=== PATIENT | female | born 1965 | race Caucasian/White ===

== ENCOUNTER → 2021-10-14 13:24 | Outpatient (CLI) | payer BC, SELFPAY ==
--- NOTE | 2021-10-14 13:45 | RAD_ITS ---
STUDY: X-RAY - LUMBAR SPINE REASON FOR EXAM: Female, 56 years old. BACK PAIN TECHNIQUE: 2 view(s) of the lumbar spine were obtained. COMPARISON: None FINDINGS: Normal lumbar lordosis. There is no substantial scoliosis. There is a normal alignment of the vertebrae. There is multilevel endplate spondylosis of the lumbar vertebrae. There is multi-level degenerative disc disease with multi-level disc space narrowing. Posterior fusion hardware noted from the level of L3-S2. No evidence of hardware failure or loosening. Anterolisthesis of L5 on S1, grade 1 The soft tissue structures are unremarkable. RAD/Lumbar Spine 2 or 3 Views IMPRESSION: Degenerative changes of the spine, as detailed above. Postsurgical changes of the lumbar spine Electronically Signed: Rayray Prater DO at 4:29 EST Tel , Service support ,
== END ==
PROVIDERS: Referring Provider Anesthesiology Pain Medicine; Visit Provider Anesthesiology Pain Medicine
DX: M47.816 Spondylosis without myelopathy or radiculopathy, lumbar region (principal); M96.1 Postlaminectomy syndrome, not elsewhere classified; M51.37 Other intervertebral disc degeneration, lumbosacral region; M51.36 Other intervertebral disc degeneration, lumbar region; M47.896 Other spondylosis, lumbar region
CPT/HCPCS: 72100

== ENCOUNTER 2022-07-17 08:03 | Emergency (ER) | payer BC, SELFPAY ==
[2022-07-17 08:04] VITALS: BP 132/95; PULSE 106; RESP 22; TEMP 36.8; O2SAT 91; BMI 23.3
--- NOTE | 2022-07-17 08:18 | RAD_ITS ---
STUDY: X-RAY - LUMBAR SPINE REASON FOR EXAM: Female, 56 years old. pain, history of lumbar surgery TECHNIQUE: 2 view(s) of the lumbar spine were obtained. COMPARISON: X-ray the lumbar spine dated October 14, 2021 FINDINGS: Bilateral pedicle screws and fusion rods and interbody grafts are present at L3-S1 with terminal screws through the S2 and bilateral SI joint regions. Mild extra scoliosis is present. The lumbar lordosis is slightly exaggerated. There is no change in spinal alignment. A small break in the left spinal anju at L5-S1 is seen on the lateral view only. No visualized acute fracture or compression deformity of the lumbar spine. There are chronic appearing compression deformities of the T8, T9, and T10 vertebral bodies. Anterolisthesis of L5 on S1 of 1.18 cm, suggesting underlying pars defects. The soft tissue structures are unremarkable. RAD/Lumbar Spine 2 or 3 Views IMPRESSION: No visualized acute process or significant interval change Electronically Signed: Arnoldo Araujo MD at 8:59 EDT ,
[2022-07-17] MEDS: morphine 10 MG/ML Syringe 4 MG SC (08:27)
--- NOTE | 2022-07-17 09:07 | EDS_ITS ---
HPI History of Present Illness Chief Complaint: Back Onset/Context/Timing Onset: Month(s) Location: Low back Maximum Severity: Severe Worsened by: Movement and use Associated Symptoms Associated Symptoms: None Narrative Narrative: Patient has a history of low back pain for months. She has a history of a lumbar cage that was placed 2 years ago at an outside facility. She has been moving a lot because of her 's work and does not have local physician or pain management. She is out of her pain pills and gabapentin. She denies any new injuries or symptoms. Prior similar symptoms: Yes Recent Illness/Hospitalization: No [facility] Medical History Depression Home Medications cyclobenzaprine 10 mg tablet 10 mg PO TID PRN Muscle Spasm #20 TABLETS 07/17/22 [Rx Last Taken Unknown] duloxetine 60 mg capsule,delayed release (Cymbalta) 60 mg PO DAILY 07/17/22 [History Last Taken Unknown] gabapentin 600 mg tablet 1,200 mg PO TID 07/17/22 [History Last Taken Unknown] naproxen 500 mg tablet 500 mg PO BID PRN #20 tabs 07/17/22 [Rx Last Taken Unknown] Allergy/AdvReac Type Severity Reaction Status Date / Time solifenacin [From Vesicare] Allergy Other Verified 07/17/22 08:04 Surgical History (Updated 07/17/22 @ 08:16 by Sabra Herman) History of appendectomy History of back surgery Social History Smoking Status: Current every day smoker tobacco type: cigarettes ROS ROS ED Constitutional Constitutional ED: Denies chills Eyes Eyes: Denies blurry vision ENT ENT ED: Denies ear pain Cardiovascular Cardiovascular: Denies chest pain Respiratory/Chest Respiratory/Chest: Denies cough Gastrointestinal Gastrointestinal: Denies abdominal pain, constipation, diarrhea, melena, nausea or vomiting Genitourinary Genitourinary ED: Denies dysuria Musculoskeletal Musculoskeletal: Reports back pain; Denies arthralgias Integumentary Denies abscess Neurologic Neurologic: Denies headache(s), paresthesias, weakness or other Psychiatric Psychiatric: Denies anxiety Endocrine Endocrinology: Denies cold intolerance Hematologic/Lymphatic Hematologic/Lymphatic: Denies easy bruising Allergic/Immunologic Allergic/Immunologic ED: Denies mouth swelling EXAM Physical Exam Const Vital Signs: 07/17/22 08:04 Temperature 98.2 F Temperature Source Temporal Pulse Rate 106 H Respiratory Rate 22 H Blood Pressure 132/95 H Blood Pressure Mean 107 Pulse Ox 91 Oxygen Delivery Method Room Air Positive well nourished and well developed General Appearance ED: well developed HEENT Reports moist mucous membranes Eyes PERRL and EOMs intact bilaterally Resp normal respiratory effort Cardio regular rate GI normal to inspection, nondistended, normoactive bowel sounds, non-tender and non-distended Back/Spine no CVA tenderness Back/Spine Narrative: Lumbar midline incision, well-healed and appears otherwise normal. Diffuse tenderness to the lumbar spine. Extremity normal to inspection General Extremety ED: Negative for edema or tenderness General Extremity: Negative for edema Neuro oriented x3, CN's II-XII intact bilaterally and no sensory deficits noted Sensorium / Orientation: alert Motor Exam: strength 5/5 throughout Psych mental status grossly normal Skin no rashes or lesions noted MDM MDM MDM Narrative Medical decision making narrative: Patient has no fevers, abnormal neurologic symptoms, trauma, cancer history, blood thinner use, or other red flag features. I did check x-rays. These were reviewed by the radiologist and myself showed no acute abnormalities. Patient was treated with pain medicine and will receive prescription for muscle relaxers and anti-inflammatories. She was referred to pain management for follow-up. Impression #1 acute on chronic lumbar pain Radiography Diagnostic Testing: Clinical Impression(s) from Imaging Studies Lumbar Spine X-Ray 07/17/22 08:18 IMPRESSION: No visualized acute process or significant interval change Electronically Signed: Arnoldo Araujo MD at 8:59 EDT Reading Location ID and State: [address] [place] [address] , Service support , Discharge Plan Triage Chief Complaint: Back ED Provider: Sanjeev Howard Dx/Rx/DC Orders Instructions: ED Back Pain (Acute or Chronic) Prescriptions: New cyclobenzaprine 10 mg tablet 10 mg PO TID PRN (Reason: Muscle Spasm) Qty: 20 0RF naproxen 500 mg tablet 500 mg PO BID PRN Qty: 20 0RF No Action gabapentin 600 mg tablet 1,200 mg PO TID Label Comments: TAKE 2 TABLETS BY MOUTH THREE TIMES DAILY duloxetine [Cymbalta] 60 mg Capsule,Delayed Release(Dr/Ec) 60 mg PO DAILY Primary Care Provider: Care Physician,No Primary Referrals: Wilman Green MD [Med Staff - Active Staff] - Disposition Disposition: Home, Self Care
== END 2022-07-17 09:12 | disposition home or self-care (01) ==
PROVIDERS: Emergency Provider Emergency Medicine; Visit Provider Emergency Medicine
DX: M54.50 Low back pain, unspecified (principal); G89.29 Other chronic pain; F17.210 Nicotine dependence, cigarettes, uncomplicated; F32.9 Major depressive disorder, single episode, unspecified; Z79.899 Other long term (current) drug therapy
CPT/HCPCS: 72100; 99282

== ENCOUNTER → 2022-08-23 | Outpatient (CLI) | payer BC, SELFPAY ==
--- NOTE | 2022-08-23 16:04 | MRI_ITS ---
STUDY: MRI LUMBAR SPINE WITH AND WITHOUT CONTRAST REASON FOR EXAM: Female, 57 years old. LOW BACK PAIN, hx prior surgery 12/14/20 TECHNIQUE: Standardized fat and water weighted pulse sequences were obtained in the sagittal and axial planes. IV 13ml Clariscan was administered for the contrast portion of the examination. COMPARISON: None FINDINGS: Bilateral metal artifact L4-S1 consistent with bilateral pedicle screw fusion. Grade 2 spondylolisthesis L5 on S1. T12-L1: Mild disc desiccation. Normal lumbar lordosis. There is no substantial scoliosis. Normal conus medullaris that terminates at the L1-2: Mild disc desiccation and disc bulging. L2-3: Mild disc desiccation and disc bulging, mild bilateral facet arthropathy, moderate bilateral neural foraminal encroachment. L3-4: Interbody fusion device circular in shape projects centrally within this space, mild recurrent or residual disc bulging, mild bilateral facet arthropathy and mild bilateral neural foraminal encroachment. L4-5: Moderate disc desiccation, surgical interbody fusion device. Centrally within the disc space, mild disc bulging, moderate bilateral facet arthropathy and moderate bilateral neural foraminal encroachment. L5-S1: Moderate disc desiccation and loss of disc space height, moderate pseudobulge, moderate bilateral facet arthropathy, severe bilateral neural foraminal encroachment. No significant abnormal contrast enhancement. Normal visualized sacral ala. Normal visualized paraspinous soft tissue structures. MRI/Spine Lumbar W/WO Contrast IMPRESSION: Bilateral pedicle screw fusion L3-S1. Grade 2 spondylolisthesis L5-S1 with moderate pseudobulge. Mild disc bulging L1-L5. Multilevel degenerative disc disease, facet arthropathy and neural foraminal encroachment as above. Electronically Signed: Carrington Trujillo MD, CARMEN at 8:40 EDT ,
--- NOTE | 2022-08-23 17:05 | RAD_ITS ---
STUDY: X-RAY - LUMBOSACRAL SPINE REASON FOR EXAM: Female, 57 years old. PAIN TECHNIQUE: 7 view(s) of the lumbosacral spine were obtained. COMPARISON: None FINDINGS: Normal lumbar lordosis. There is no substantial scoliosis. Bilateral pedicle screw fusion L3-S1, grade 2 spondylolisthesis L5-S1 with probable spondylolysis, interbody fusions L3-S1. Stable alignment neutral, flexion, and extension positioning. Bilateral laminectomy L4-5 and L5-S1. Moderate anterior osteophyte formation L1-L3. Moderate loss of disc space height L1-L3. Normal bilateral sacral ala, sacroiliac joints, and visualized sacrum. Normal visualized soft tissue structures. RAD/L/S Spine Comp/w Bending Views IMPRESSION: Postoperative and degenerative changes detailed above. Grade 2 spondylolisthesis L5-S1 with probable bilateral spondylolysis. Electronically Signed: Carrington Trujillo MD, CARMEN at 8:42 EDT ,
== END | disposition home or self-care (01) ==
DX: M54.50 Low back pain, unspecified (principal)
CPT/HCPCS: 72114; 72158; A9575

== ENCOUNTER 2022-10-03 12:01 | Emergency (ER) | payer BC, SELFPAY ==
[2022-10-03 12:02] VITALS: BP 136/85; PULSE 81; RESP 18; TEMP 36.6; O2SAT 100; BMI 21.6
== END 2022-10-03 17:42 | disposition left against medical advice (07) ==
LOC: ED 17:47
DX: R29.6 Repeated falls (principal)

== ENCOUNTER 2022-10-07 12:20 | Emergency (ER) | payer BC, SELFPAY ==
[2022-10-07 12:21] VITALS: BP 125/84; PULSE 88; RESP 16; TEMP 36.6; O2SAT 100; BMI 21.6
--- NOTE | 2022-10-07 13:15 | RAD_ITS ---
STUDY: X-RAY - PELVIS AND LEFT HIP REASON FOR EXAM: Female, 57 years old. PT. FELL X1 WEEK AGO STATES SHE BROKE HER HIP. CAME IN EARLIER IN THE WEEK BUT LEFT R/T WAIT. PT C/O 06/22 LEFT HIP PAIN TECHNIQUE: 3 views of the pelvis and hip. COMPARISON: None. FINDINGS: There is a non-specific bowel gas pattern. Normal visualized soft tissue structures. No visualized acute fracture or displaced bony fragment. There is mild right and moderate left hip joint space narrowing. Spinal hardware and posterior decompressive defects are present in the lower lumbar spine, terminating across the SI joints. Normal bilateral iliac wings, sacroiliac joints and visualized sacrum. Normal bilateral superior and inferior pubic rami. Normal pubic symphysis. Normal bilateral ischial tuberosities. Normal visualized femoral head. Normal acetabulum. RAD/HIP, UNI W/ Pelvis 2-3 Views IMPRESSION: 1. Mild to moderate bilateral hip joint space narrowing Electronically Signed: Arnoldo Araujo MD at 13:43 EST ,
--- NOTE | 2022-10-07 14:59 | EDS_ITS ---
HPI HPI - Fall History of Present Illness Chief Complaint: Fall Informant: patient Occured/Mechanism Occurred: Weeks (1) Mechanism/Context: Yes same level fall Usually ambulates: Without assistance Pain/Injury Location: Left hip Pain Location: lower extremity Quality of Pain: Sharp Worsened by: Movement, ambulation Relieved by: Rest Associated Symptoms Associated Symptoms: Negative for Parasthesias, Weakness, Loss of function, Inability to ambulate or Loss of consciousness Narrative Narrative: Patient presents with fall 1 week ago. Patient states she slipped and fell. Patient states she landed on her left hip. Patient states her pain has been constant. Patient describes the pain as sharp. Patient states it is worse with ambulation and movement. Patient states it is better with rest. Patient denies any head injury or loss of consciousness with the fall. Patient denies any paresthesias or weakness. Patient states she has been able to ambulate since the fall but it is painful. [facility] Medical History Depression Home Medications cyclobenzaprine 10 mg tablet 10 mg PO TID PRN Muscle Spasm #20 TABLETS 07/17/22 [Rx Last Taken Unknown] duloxetine 60 mg capsule,delayed release (Cymbalta) 60 mg PO DAILY 07/17/22 [History Last Taken Unknown] gabapentin 600 mg tablet 1,200 mg PO TID 07/17/22 [History Last Taken Unknown] naproxen 500 mg tablet 500 mg PO BID PRN #20 tabs 07/17/22 [Rx Last Taken Unknown] hydrocodone-acetaminophen 5-325mg 5mg-325mg 1 tab PO Q6H PRN PRN Pain 3 days #10 TABLETS 10/07/22 [Rx Last Taken Unknown] Allergy/AdvReac Type Severity Reaction Status Date / Time solifenacin [From Vesicare] Allergy Other Verified 10/07/22 12:21 Surgical History History of appendectomy History of back surgery Social History Smoking Status: Current every day smoker tobacco type: cigarettes ROS ROS ED Constitutional Constitutional ED: Denies chills or fever(s) Eyes Eyes: Denies blurry vision or change in vision ENT ENT ED: Denies rhinorrhea or sore throat Cardiovascular Cardiovascular: Denies chest pain or palpitations Respiratory/Chest Respiratory/Chest: Denies cough or dyspnea Gastrointestinal Gastrointestinal: Denies nausea or vomiting Genitourinary Genitourinary ED: Denies dysuria or hematuria Musculoskeletal Musculoskeletal: Reports back pain; Denies neck pain Integumentary Denies abscess or rash Neurologic Neurologic: Denies headache(s) or weakness Allergic/Immunologic Allergic/Immunologic ED: Denies mouth swelling or urticaria EXAM Physical Exam Const Vital Signs: 10/07/22 12:21 Temperature 97.8 F Temperature Source Temporal Pulse Rate 88 Respiratory Rate 16 Blood Pressure 125/84 H Blood Pressure Mean 97 Pulse Ox 100 Oxygen Delivery Method Room Air Positive well nourished and well developed General Appearance ED: well developed HEENT Reports moist mucous membranes Neck supple and no JVD Resp normal respiratory effort and clear to auscultation bilaterally Cardio regular rate, regular rhythm and no murmurs GI normal to inspection, nondistended, normoactive bowel sounds and non-tender Palpation: soft Extremity normal to inspection Extremity Narrative: There is tenderness to palpation over the left hip abdomen anteriorly and laterally. There is pain with external rotation. There is no deformity noted. Range of motion was limited in all motions of the left hip secondary to pain. S trength is 5/5 bilaterally in the lower extremities. There are no sensory deficits noted. Pedal pulses are equal bilaterally. General Extremety ED: Yes tenderness Neuro oriented x3, CN's II-XII intact bilaterally and no sensory deficits noted Sensorium / Orientation: alert Motor Exam: strength 5/5 throughout Psych mental status grossly normal Skin no rashes or lesions noted MDM MDM MDM Narrative Medical decision making narrative: X-rays of the left hip were obtained. There are 3 views. On my interpretation, there is no acute fracture or dislocation. Radiologist also interpreted the x- rays and agrees. Patient was given a prescription for a short course of [place]. Patient was instructed to use ice to the area. Patient was instructed to follow-up with her primary care physician in 5 to 7 days. Patient understood and was agreeable with the plan. All questions were answered. Radiography Diagnostic Testing: Clinical Impression(s) from Imaging Studies Hip/Pelvis X-Ray 10/07/22 13:15 IMPRESSION: 1. Mild to moderate bilateral hip joint space narrowing Electronically Signed: Arnoldo Araujo MD at 13:43 EST Reading Location ID and State: [facility] / [place] , Service support , Discharge Plan Triage Chief Complaint: Fall ED Provider: Pierre Renae Dx/Rx/DC Orders Clinical Impression: Contusion of left hip, initial encounter, Fall Instructions: ED Hip Contusion Prescriptions: New hydrocodone-acetaminophen [hydrocodone-acetaminophen] 1 TABLET tablet 1 tab PO Q6H PRN PRN (Reason: Pain) 3 Days Qty: 10 0RF No Action gabapentin 600 mg tablet 1,200 mg PO TID Label Comments: TAKE 2 TABLETS BY MOUTH THREE TIMES DAILY duloxetine [Cymbalta] 60 mg Capsule,Delayed Release(Dr/Ec) 60 mg PO DAILY cyclobenzaprine 10 mg tablet 10 mg PO TID PRN (Reason: Muscle Spasm) Qty: 20 0RF naproxen 500 mg tablet 500 mg PO BID PRN Qty: 20 0RF Primary Care Provider: JITENDRA CALZADA Referrals: JITENDRA CALZADA [Other] - 3-5 Days Disposition Disposition: Home, Self Care
== END 2022-10-07 15:18 | disposition home or self-care (01) ==
PROVIDERS: Emergency Provider Emergency Medicine; Visit Provider Emergency Medicine
DX: S70.02XA Contusion of left hip, initial encounter (principal); W01.0XXA Fall on same level from slipping, tripping and stumbling without subsequent striking against object, initial encounter; F17.210 Nicotine dependence, cigarettes, uncomplicated; Z79.899 Other long term (current) drug therapy
CPT/HCPCS: 73502; 99282

== ENCOUNTER 2022-12-03 13:17 | Emergency (ER) | payer BC, SELFPAY ==
[2022-12-03 13:19] VITALS: BP 109/93; PULSE 104; RESP 18; TEMP 36.7; BMI 28.1
--- NOTE | 2022-12-03 14:19 | EDS_ITS ---
HPI History of Present Illness Chief Complaint: Weakness Detail of Chief Complaint: Left leg weakness. Lower back and groin pain. Informant: patient Onset/Context/Timing Onset: Days Context: Gradual Onset Timing: Continuous Quality: Dull and Aching Location: Lumbar Current Severity: Moderate Maximum Severity: Moderate Worsened by: improves with Movement Relieved by: Nothing Associated Symptoms Associated Symptoms: Radiation to Left Leg; Negative for Numbness, Tingling, Abdominal Pain, Dysuria, Unable to Transfer, Urinary Retention, Urinary Incontinence, Constipation or Fecal Incontinence Narrative Narrative: 57-year-old female history of prior back surgery about 2 years ago in 2020 done in [place]. She has rods in her back. Since that time reportedly those have broken. She states she has had lower back pain and primarily groin pain the last several days to the point where she cannot move her left leg. She fell 3 months ago an MRI done at that time in August. Denies any recent falls, trauma or fever. No dysuria. No bowel or bladder incontinence. Prior similar symptoms: No Recent Illness/Hospitalization: No [facility] Medical History Depression Home Medications cyclobenzaprine 10 mg tablet 10 mg PO TID PRN Muscle Spasm #20 TABLETS 07/17/22 [Rx Last Taken Unknown] duloxetine 60 mg capsule,delayed release (Cymbalta) 60 mg PO DAILY 07/17/22 [History Last Taken Unknown] gabapentin 600 mg tablet 1,200 mg PO TID 07/17/22 [History Last Taken Unknown] naproxen 500 mg tablet 500 mg PO BID PRN #20 tabs 07/17/22 [Rx Last Taken Unknown] hydrocodone-acetaminophen 5-325mg 5mg-325mg 1 tab PO Q6H PRN PRN Pain 3 days #10 TABLETS 10/07/22 [Rx Last Taken Unknown] oxycodone-acetaminophen 5 mg-325 mg tablet (Percocet) 1 tab PO Q6H PRN pain 3 days #10 tabs 12/03/22 [Rx Last Taken Unknown] prednisone 20 mg tablet 40 mg PO DAILY 7 days #14 tabs 12/03/22 [Rx Last Taken Unknown] Allergy/AdvReac Type Severity Reaction Status Date / Time solifenacin [From [facility]icare] Allergy Other Verified 12/03/22 13:19 Surgical History History of appendectomy History of back surgery Social History Smoking Status: Current every day smoker tobacco type: cigarettes ROS ROS ED ROS Narrative Denies recent illness. Lower back pain. Left leg weakness. Review of Systems ROS Unobtainable: Denies due to encephalopathy Constitutional Constitutional ED: Denies chills or fever(s) Eyes Eyes: Denies blurry vision ENT ENT ED: Denies ear pain Cardiovascular Cardiovascular: Denies chest pain or palpitations Respiratory/Chest Respiratory/Chest: Denies dyspnea or dyspnea on exertion Gastrointestinal Gastrointestinal: Denies abdominal pain or constipation Genitourinary Genitourinary ED: Denies dysuria or hematuria Musculoskeletal Musculoskeletal: Denies arthralgias Integumentary Denies abscess or Abrasions Neurologic Neurologic: Denies headache(s) Psychiatric Psychiatric: Denies anxiety or depression Endocrine Endocrinology: Denies cold intolerance Hematologic/Lymphatic Hematologic/Lymphatic: Denies easy bleeding Allergic/Immunologic Allergic/Immunologic ED: Denies mouth swelling or tongue swelling EXAM Physical Exam Narrative Exam Narrative: 57-year-old female vital signs stable afebrile. Patient sitting up on the side of the bed. Tearful. at bedside. H EENT exam unremarkable. Neck nontender. Lungs clear to auscultation bilaterally. Heart regular rhythm no murmur. Abdomen is soft and nontender. Normal bowel sounds no peritoneal signs. Both upper extremities have normal range of motion. 5 of 5 plastic frame inserter strength. Normal sensation. Right lower extremity has normal strength, sensation and range of motion. Left lower extremity she has weakness she cannot lift the leg off the bed. She cannot dorsi and plantarflex her left foot. She cannot flex and extend her left knee or hip. There is no bony deformity. She complains of pain in her left groin but is not reproducible. Hip exam is unremarkable. Back she has diffuse tenderness to her lower back on both sides. There is no signs of trauma. No redness or warmth. Neurologically she is awake and alert. She has weakness in her left leg. No loss of sensation. Very limited left leg dorsi and plantar flexion. Normal on the right. Const Vital Signs: 12/03/22 13:19 12/03/22 13:34 12/03/22 14:37 Temperature 98.1 F Temperature Source Temporal Pulse Rate 104 H Respiratory Rate 18 Respiratory Effort Normal Respiratory Pattern Normal Blood Pressure 109/93 H Blood Pressure Mean 98 Pulse Ox 93 Oxygen Delivery Method Room Air 12/03/22 14:52 12/03/22 19:47 12/03/22 20:00 Temperature Temperature Source Pulse Rate 81 85 Respiratory Rate 15 15 Respiratory Effort Respiratory Pattern Blood Pressure 139/89 H 134/77 H Blood Pressure Mean 105 96 Pulse Ox 94 92 Oxygen Delivery Method Room Air Room Air Room Air Positive well nourished, well developed and obese; Negative for cachectic, contractures or unkempt General Appearance ED: well developed; Negative for unkempt, cachectic, contractures or pallor Nutritional Appearance: obese; Negative for cachectic HEENT Reports moist mucous membranes and dry mucous membranes Negative for trauma or tenderness Mouth ED: Yes dry mucous membranes Mouth: dry mucous membranes Eyes PERRL and EOMs intact bilaterally General Eye ED: Negative for pale conjunctiva or scleral icterus Neck no lymphadenopathy, supple and no JVD General: Negative for tenderness Thyroid: Negative for other Chest Wall Chest: Negative for other Resp normal respiratory effort and clear to auscultation bilaterally Effort and Inspection: Negative for pain with movement Auscultation: Negative for rales, rhonchi or wheezes Cardio regular rate, regular rhythm, S1 normal heart sound, S2 normal heart sound and no murmurs Palpation: Negative for palpable S3 Rate: Negative for bradycardia or tachycardic Rhythm: Negative for abnormal rhythm Bruits: Negative for other GI normal to inspection, nondistended, normoactive bowel sounds, soft to palpation, non-tender, non-distended and no masses Inspection: Negative for abdominal distention Auscultation: Negative for hyperactive bowel sounds Palpation: Negative for tender or guarding Back/Spine normal to inspection and no thoracic nor lumbar tenderness Back/Spine Narrative: Diffuse lower back tenderness but not specifically over the spine. General Back: Negative for CVA tenderness Cervical Spine: Negative for cervical spine tenderness Thoracic Spine / Upper Back: paraspinal muscle tenderness Extremity Negative for normal to inspection Extremity Narrative: Left lower extremity weakness. No loss of sensation. Unable to dorsi plantarflex the left foot. Unable to do flexion-extension of left knee or hip. General Extremety ED: Negative for edema or tenderness General Extremity: Negative for edema Neuro oriented x3 and no sensory deficits noted Neuro Narrative: Weakness left lower extremity. Sensorium / Orientation: alert; Negative for confused, lethargic or stuporous Motor Exam: strength abnormal; Negative for strength 5/5 throughout Psych mental status grossly normal Appearance: Negative for unkempt Attitude: No agitated and No other Mood & Affect: depressed and tearful; Negative for sad Skin no rashes or lesions noted and no wounds General Skin Exam: Negative for jaundice or pallor Lesions: No lesion noted Rashes: No rashes noted Trauma: Negative for abrasion or puncture Wounds: Negative for wounds noted MDM MDM MDM Narrative Medical decision making narrative: The 7-year-old female left lower extremity weakness. Prior back surgery almost 2 years ago with rods in her back that are reportedly broken as seen on an MRI from 3 to 4 months ago. Basically has atraumatic pain and weakness in her left leg in the last 3 to 4 days. She be treated with IV morphine for pain and Zofran to prevent nausea. MRI of the lumbar spine with contrast was ordered. Patient was taken MRI she could not remain still in her back for the MRI she was given a second dose of morphine IV 8 mg. Again could not hold still was also given 30 of IV Toradol. Could not do the MRI and refused to lay flat and came back to the emergency department. She will now be given a milligram of IV of Dilaudid. Will repeat exams no significant change. I discussed with our radiologist her MRI read tonight. There is no acute signs of cauda equina. No spinal canal abscess. The MRI looks very similar to the one done previously in August. Discussed all that with the patient and her significant other. She will be written for 10 Percocet for pain. Prednisone 40 mg a day for 1 week. She knows the importance of following up with her spine surgeon at [facility]. Radiography Diagnostic Testing: Clinical Impression(s) from Imaging Studies Lumbar Spine MRI 12/03/22 17:51 IMPRESSION: 1. Extensive postoperative changes with pedicle screw posterior fixation from L3 S1, laminectomy defects also present at L4 and L5. 2. No evidence of acute canal stenosis. No abnormal fluid collections hematoma or abscess. No epidural abscess noted. 3. Multilevel foraminal narrowing due to facet and ligamentum flavum hypertrophic changes greater on the LEFT than RIGHT with early nerve root impingement as detailed. 4. Broad-based posterior disc bulge/protrusion at L2-3 without canal stenosis. There is narrowing of lateral recesses and neural foramina greater on LEFT than RIGHT. 5. No evidence cord compression. No evidence of intradural or intramedullary signal or contrast abnormality. Electronically Signed: Marcel Warner MD at 20:12 EST , Discharge Plan Triage Chief Complaint: Weakness ED Provider: Arturo Link Dx/Rx/DC Orders Clinical Impression: Back pain, Left leg weakness Instructions: ED Back Pain (Acute or Chronic) Prescriptions: New oxycodone-acetaminophen [Percocet] 5-325 mg tablet 1 tab PO Q6H PRN (Reason: pain) 3 Days Qty: 10 0RF prednisone 20 mg tablet 40 mg PO DAILY 7 Days Qty: 14 0RF No Action gabapentin 600 mg tablet 1,200 mg PO TID Label Comments: TAKE 2 TABLETS BY MOUTH THREE TIMES DAILY duloxetine [Cymbalta] 60 mg Capsule,Delayed Release(Dr/Ec) 60 mg PO DAILY cyclobenzaprine 10 mg tablet 10 mg PO TID PRN (Reason: Muscle Spasm) Qty: 20 0RF naproxen 500 mg tablet 500 mg PO BID PRN Qty: 20 0RF hydrocodone-acetaminophen [hydrocodone-acetaminophen] 1 TABLET tablet 1 tab PO Q6H PRN PRN (Reason: Pain) 3 Days Qty: 10 0RF Primary Care Provider: Care Physician,No Primary Referrals: Care Physician,No Primary [Primary Care Provider] - Activity Restrictions/Additional Instructions: Follow-up with your spine surgeon as soon as possible. He needs to review your recent MRIs and compared them to the past. He also needs evaluation due to the weakness in your left leg. Percocet for pain. Otherwise ibuprofen. Prednisone daily for inflammation in your back. Disposition Disposition: Home, Self Care
[2022-12-03] MEDS: morphine 8 MG/ML Syringe IV ×2 (14:34→15:42)
[2022-12-03] MEDS: Ondansetron 4 MG/2 ML Vial IV (14:34)
[2022-12-03 14:37] VITALS: O2SAT 93
[2022-12-03 14:52] VITALS: BP 139/89; PULSE 81; O2SAT 94
[2022-12-03] MEDS: Ketorolac 30 MG/ML Syringe IV (16:19)
--- NOTE | 2022-12-03 16:19 | ED.RN ---
pt in mri and not able to stay still for scan so another 8mg morphine was given to the patient. She was still not able to stay still so went down to give IV toradol. Pt refused the MRI. Expressed to patient she needs to have the MRI for us to have answers and she will have to really try to stay still. Pt states she cannot and then started to yell profanities at this nurse and tech stating this is why she is in so much pain and brought up a missed finding on a MRI she lyons done previously. Explained I am not able to fix something from then but asked what she wanted me to help her with today, to help her today. She states she wants to leave AMA. Talked to patient about that and told her I would talk to the doctor. Rail down per patient request as she is more comfortable sitting up. Dr Link is aware.
[2022-12-03] MEDS: HYDROmorphone 1 MG/ML Syringe IV (16:36)
--- NOTE | 2022-12-03 17:51 | MRI_ITS ---
STUDY: MRI LUMBAR SPINE WITHOUT CONTRAST REASON FOR EXAM: Female, 57 years old. UNABLE TO MOVE LEFT LEG, PRIOR BACK SURGERY TECHNIQUE: MRI examination lumbar spine obtained with standard protocol including multiplanar multiecho pre and postcontrast imaging. Contrast: 14 mL Clariscan COMPARISON: 08/23/2022 FINDINGS: Vertebral bodies and alignment. 1. Extensive postoperative changes are present including pedicle screw posterior fixation from L3 to S1. There is significant susceptibility artifact due to fixation hardware. 2. No evidence of marrow edema or hardware failure, no fractures or acutely acquired canal stenosis noted. 3. There is soft tissue thickening and T2 signal within the overlying soft tissues, combination of edema and potential scar. No organized fluid collections or abscess. 4. No evidence of epidural abscess. No evidence of pseudomeningocele. 5. The remaining paraspinous soft tissue planes have normal appearance. Normal appearance of the muscular fascial planes of the erector spinae. 6. Normal appearance of the sacrum and sacroiliac joints. Intervertebral disks levels. T12-L1: Normal endplates. Normal disc height, hydration and morphology. Normal bilateral facet joints. Normal central canal and bilateral lateral recesses. Normal bilateral intervertebral neural foramina. L1-2: Disc desiccation, minimal disc bulge, no disc herniation or canal stenosis. Mild facet hypertrophic changes. L2-3: Facet hypertrophy, broad-based posterior disc protrusion and osteophyte complex. Central canal is maintained at 9 mm. There is facet hypertrophic change with significant deformity of lateral recesses LEFT greater than RIGHT. There is narrowing of the LEFT neural foramen. Early nerve root impingement within the neural foramen suspected. L3-4: Facet hypertrophic changes, postoperative changes are present. No evidence of disc herniation or canal stenosis. There is however crowding of nerve roots lateral recesses and in the neural foramina greater on the LEFT than RIGHT. Early LEFT L3 nerve root impingement within the neural foramen is a consideration. L4-5: Loss of disc height, no evidence of disc herniation or canal stenosis. There is narrowing of the neural foramina bilaterally is narrowing of the LEFT lateral recess and LEFT neural foramen. L5-S1: Grade 1 anterolisthesis, postoperative changes are present. No evidence canal stenosis however deformity of lateral recesses and neural foramina due to the anterolisthesis and facet atrophic changes. Spinal cord: Normal appearance of the spinal cord and conus. Conus is located at L1. Cauda equina has normal appearance. No evidence of cord compression or edema. No intramedullary signal abnormality noted. MRI/Spine Lumbar W/WO Contrast IMPRESSION: 1. Extensive postoperative changes with pedicle screw posterior fixation from L3 S1, laminectomy defects also present at L4 and L5. 2. No evidence of acute canal stenosis. No abnormal fluid collections hematoma or abscess. No epidural abscess noted. 3. Multilevel foraminal narrowing due to facet and ligamentum flavum hypertrophic changes greater on the LEFT than RIGHT with early nerve root impingement as detailed. 4. Broad-based posterior disc bulge/protrusion at L2-3 without canal stenosis. There is narrowing of lateral recesses and neural foramina greater on LEFT than RIGHT. 5. No evidence cord compression. No evidence of intradural or intramedullary signal or contrast abnormality. Electronically Signed: Marcel Warner MD at 20:12 EST ,
[2022-12-03 19:47] VITALS: BP 134/77; PULSE 85; RESP 15; O2SAT 92
[2022-12-03 20:00] VITALS: RESP 15
[2022-12-03 21:03] VITALS: PULSE 80; RESP 16; O2SAT 96
== END 2022-12-03 21:04 | disposition home or self-care (01) ==
PROVIDERS: Emergency Provider Emergency Medicine; Visit Provider Emergency Medicine
DX: M54.9 Dorsalgia, unspecified (principal); F17.210 Nicotine dependence, cigarettes, uncomplicated; M62.81 Muscle weakness (generalized); R10.30 Lower abdominal pain, unspecified; F32.A Depression, unspecified
CPT/HCPCS: 72158; 96374; 96375; 96376; 99282; A9575; J7030; A4216; J2405

== ENCOUNTER → 2023-09-05 | Outpatient (CLI) | payer BC, SELFPAY ==
--- NOTE | 2023-09-05 13:15 | RAD_ITS ---
STUDY: X-RAY - LUMBAR SPINE REASON FOR EXAM: Female, 58 years old. Follow-up after ORIF. TECHNIQUE: 3 view(s) of the lumbar spine were obtained. COMPARISON: August 23, 2022 FINDINGS: Osteopenia with stable posterior fixation from L3 to S1 with laminectomies and intervertebral disc prostheses. Bilateral sacroiliac joint fusion unchanged. Spondylosis of the lower thoracic and upper lumbar spine, unchanged. Left total hip arthroplasty unchanged. Vascular calcification. RAD/Lumbar Spine 2 or 3 Views IMPRESSION: Osteopenia with stable ORIF of the lower lumbosacral spine, bilateral sacroiliac joints and left hip. No acute abnormality or complications. Electronically Signed: Kuldeep Gallego MD at 15:53 EDT ,
== END | disposition home or self-care (01) ==
PROVIDERS: PCP Student in an Organized Health Care Education/Training Program
DX: Z98.1 Arthrodesis status (principal)
CPT/HCPCS: 72100

== ENCOUNTER 2024-04-26 12:11 | Emergency (ER) | payer BC, SELFPAY ==
[2024-04-26 12:12] VITALS: BP 147/105; BP 151/100; PULSE 105; PULSE 110; RESP 18; RESP 20; TEMP 37.2; O2SAT 97; BMI 29.5
--- NOTE | 2024-04-26 12:30 | EDS_ITS ---
HPI <YODIT Nam - Last Filed: 04/26/24 19:52> History of Present Illness Chief Complaint: Diarrhea Narrative Narrative: 58-year-old female states she has had ongoing abdominal pain, bloating, diarrhea intermittently over the last 3 years. She states it started after multiple surgeries including back surgery and hip surgeries. She recently was evaluated by Dr. Cuong Brown a e commerce merchandising coordinator in [place] and tested positive for C. difficile. She completed 14 days of oral vancomycin but had no change in diarrhea frequency. The GI doctor called in a second prescription for vancomycin which she has been on for the last 2 days. She states she has continuous loose brown watery stool throughout the day and has to wear depends. She has no fever, chills, or vomiting. PFSH <YODIT Nam - Last Filed: 04/26/24 19:52> [facility] Medical History Depression Home Medications ?Medication ?Instructions ?Recorded ?Last Taken ?Type cyclobenzaprine 10 mg tablet 10 mg PO TID PRN Muscle Spasm #20 07/17/22 Unknown Rx TABLETS duloxetine 60 mg capsule,delayed 60 mg PO DAILY 07/17/22 Unknown History release (Cymbalta) gabapentin 600 mg tablet 1,200 mg PO TID 07/17/22 Unknown History naproxen 500 mg tablet 500 mg PO BID PRN #20 tabs 07/17/22 Unknown Rx hydrocodone-acetaminophen 5-325mg 1 tab PO Q6H PRN PRN Pain 3 days 10/07/22 Unknown Rx 5mg-325mg #10 TABLETS oxycodone-acetaminophen 5 mg-325 1 tab PO Q6H PRN pain 3 days #10 12/03/22 Unknown Rx mg tablet (Percocet) tabs prednisone 20 mg tablet 40 mg (2 x 20 mg) PO DAILY 7 days 12/03/22 Unknown Rx #14 tabs Allergy/AdvReac Type Severity Reaction Status Date / Time solifenacin (From Vesicare) Allergy Other Verified 12/03/22 13:19 Surgical History History of appendectomy History of back surgery Social History Smoking Status: Current every day smoker tobacco type: cigarettes ROS <YODIT Nam - Last Filed: 04/26/24 19:52> ROS ED ROS Narrative Constitutional: Negative for fever, chills, malaise. CVS: Negative for chest pain. Respiratory: Negative for shortness of breath. GI: Positive for abdominal pain, diarrhea. No nausea, vomiting, melena, hematochezia. : Negative for dysuria, hematuria or frequency. EXAM <YODIT Nam - Last Filed: 04/26/24 19:52> Physical Exam Narrative Exam Narrative: CONST: Patient sitting in no acute distress. EYES: Normal inspection. NECK: Normal inspection. RESP: No respiratory distress, CTAB. CVS: Regular rate and rhythm, no murmur, no gallop. ABD: Soft and nontender, no guarding or rebound. Old abdominal surgical scar, reducible ventral hernia. SKIN: Color normal, no rash, warm, dry, intact. EXTREMITIES: Normal appearance, no pedal edema. NEURO: Alert and answering questions appropriately. PSYCH: Normal affect. Const Vital Signs: 04/26/24 12:12 04/26/24 12:12 04/26/24 14:15 Temperature 99 F Temperature Source Temporal Pulse Rate 110 H 105 H 64 Respiratory Rate 20 H 18 16 Blood Pressure 151/100 H 147/105 H 124/78 H Blood Pressure Mean 117 119 93 Pulse Ox 97 97 98 Oxygen Delivery Method Room Air Room Air <Dr. Pierre Renae, DO - Last Filed: 04/26/24 14:55> Physical Exam Const Vital Signs: 04/26/24 12:12 04/26/24 12:12 04/26/24 14:15 Temperature 99 F Temperature Source Temporal Pulse Rate 110 H 105 H 64 Respiratory Rate 20 H 18 16 Blood Pressure 151/100 H 147/105 H 124/78 H Blood Pressure Mean 117 119 93 Pulse Ox 97 97 98 Oxygen Delivery Method Room Air Room Air MDM <YODIT Nam - Last Filed: 04/26/24 19:52> MDM MDM Narrative Medical decision making narrative: History gathered from: Patient and spouse Patient just started her second round of p.o. vancomycin for C. difficile which is being treated by her GI specialist. Lab Data Attestation: I reviewed the patient's lab results. Labs: Laboratory Results - last 24 hr 04/26/24 12:45 WBC 5.4 RBC 4.98 Hgb 11.6 L Hct 38.7 MCV 77.7 L MCH 23.3 L MCHC 30.0 L RDW Std Deviation 63.4 H RDW Coeff of Izabel 23.2 H Plt Count 276 MPV 9.2 Immature Gran % (Auto) 0.400 Neut % (Auto) 48.5 Lymph % (Auto) 35.8 [place] % (Auto) 8.3 Eos % (Auto) 5.9 H Baso % (Auto) 1.1 H Absolute Neuts (auto) 2.6 Absolute Lymphs (auto) 1.95 Nucleated RBC % 0 Anisocytosis 1+ Sodium 139 Potassium 4.4 Chloride 104 Carbon Dioxide 26.0 Anion Gap 9 BUN 7 Creatinine 0.68 Estim Creat Clear Calc 85.61 Est GFR (MDRD) Af Amer 113 Est GFR (MDRD) Non-Af 93 BUN/Creatinine Ratio 10.3 Glucose 106 Calcium 8.6 Radiography Diagnostic Testing: Clinical Impression(s) from Imaging Studies Abdomen/Pelvis CT 04/26/24 12:33 IMPRESSION: Mildly dilated central intrahepatic biliary ducts and common bile duct. The gallbladder is unremarkable. Hepatomegaly. Electronically Signed: Rc Ley MD at 13:58 EDT , <Dr. Pierre Renae, DO - Last Filed: 04/26/24 14:55> [facility] Lab Data Labs: Laboratory Results - last 24 hr 04/26/24 12:45 WBC 5.4 RBC 4.98 Hgb 11.6 L Hct 38.7 MCV 77.7 L MCH 23.3 L MCHC 30.0 L RDW Std Deviation 63.4 H RDW Coeff of Izabel 23.2 H Plt Count 276 MPV 9.2 Immature Gran % (Auto) 0.400 Neut % (Auto) 48.5 Lymph % (Auto) 35.8 [place] % (Auto) 8.3 Eos % (Auto) 5.9 H Baso % (Auto) 1.1 H Absolute Neuts (auto) 2.6 Absolute Lymphs (auto) 1.95 Nucleated RBC % 0 Anisocytosis 1+ Sodium 139 Potassium 4.4 Chloride 104 Carbon Dioxide 26.0 Anion Gap 9 BUN 7 Creatinine 0.68 Estim Creat Clear Calc 85.61 Est GFR (MDRD) Af Amer 113 Est GFR (MDRD) Non-Af 93 BUN/Creatinine Ratio 10.3 Glucose 106 Calcium 8.6 Radiography Diagnostic Testing: Clinical Impression(s) from Imaging Studies Abdomen/Pelvis CT 04/26/24 12:33 IMPRESSION: Mildly dilated central intrahepatic biliary ducts and common bile duct. The gallbladder is unremarkable. Hepatomegaly. Electronically Signed: Rc Ley MD at 13:58 EDT , Treatment and Re-Evaluation :: I have personally performed a face to face assessment of the patient and have reviewed the BAO Note. I performed a substantive portion of the visit including all aspects of the following. My lamb findings include: History: Patient presents with diarrhea that has been constant for the past several weeks. Patient completed a course of oral vancomycin for C. difficile. Patient follows with a e commerce merchandising coordinator in [facility]. Patient states that he was the one who diagnosed her C. difficile colitis. Patient is currently on her second day of a repeat prescription for oral vancomycin. Patient admits to some generalized abdominal pain. Patient states it is worse over the upper abdomen. Patient denies any fevers or chills. Exam: Vital signs are stable except for mild tachycardia of 110. Patient is afebrile. Patient is in no acute distress. Heart was regular rate and rhythm. Lungs are clear and equal bilaterally. Abdomen is soft. Bowel sounds are normal. There is some mild upper abdominal tenderness. There is no rebound or guarding noted. Cranial nerves II through XII are intact. There are no focal motor or sensory deficits noted. Medical Decision Making: Differential diagnosis includes C. difficile colitis, bowel obstruction, perforation, gastroenteritis, and dehydration. CBC will be obtained to assess for leukocytosis and anemia. Basic metabolic profile will be obtained to assess for electrolyte abnormality and renal function. CT scan of the abdomen pelvis will be obtained to assess for bowel obstruction, and perforation. Patient was given IV fluids. CBC was reviewed. There is a mild anemia with a hemoglobin of 11.6 and hematocrit of 38.7. Basic metabolic profile was reviewed and was within normal limits. CT scan of the abdomen pelvis was obtained. There is mildly dilated intrahepatic central biliary ducts and common bile duct. There is no evidence of cholecystitis or cholelithiasis. This was interpreted by the radiologist was also dependently reviewed by myself. Patient and spouse were advised of the findings. Patient was instructed to continue her antibiotics as prescribed. Patient was instructed to follow-up with her e commerce merchandising coordinator and primary care physician in 5 to 7 days. Patient and family understood and were agreeable with the plan. All questions were answered. Discharge Plan Triage Chief Complaint: Diarrhea ED Midlevel Provider: Akiko Shin ED Provider: Pierre Renae Dx/Rx/DC Orders Clinical Impression: Diarrhea, C. difficile diarrhea Instructions: Clostridium Difficile Infection, ED Diet Vomiting Diarrhea Prescriptions: No Action gabapentin 600 mg tablet 1,200 mg PO TID Patient Comments: TAKE 2 TABLETS BY MOUTH THREE TIMES DAILY duloxetine [Cymbalta] 60 mg Capsule,Delayed Release(Dr/Ec) 60 mg PO DAILY cyclobenzaprine 10 mg tablet 10 mg PO TID PRN (Reason: Muscle Spasm) Qty: 20 0RF naproxen 500 mg tablet 500 mg PO BID PRN Qty: 20 0RF hydrocodone-acetaminophen [hydrocodone-acetaminophen] 1 TABLET tablet 1 tab PO Q6H PRN PRN (Reason: Pain) 3 Days Qty: 10 0RF oxycodone-acetaminophen [Percocet] 5-325 mg tablet 1 tab PO Q6H PRN (Reason: pain) 3 Days Qty: 10 0RF prednisone 20 mg tablet 40 mg PO DAILY 7 Days Qty: 14 0RF Primary Care Provider: Care Physician,No Primary Referrals: Hussain Paige MD [Non-Staff] - Activity Restrictions/Additional Instructions: Your blood work is within normal limits. I recommend following up with your GI specialist for reevaluation and continuing the antibiotics he is prescribed. Print Language: Mauritian Disposition Disposition: Home, Self Care Discharge Date/Time: 04/26/24 14:55
--- NOTE | 2024-04-26 12:33 | CT_ITS ---
STUDY: CT ABDOMEN AND PELVIS WITH CONTRAST REASON FOR EXAM: Female, 58 years old. Abdominal pain. Diarrhea. Chronic C. difficile. RADIATION DOSAGE (If Supplied By Facility): CTDIvol = ( 15.82 ) mGy, DLP = ( 877.70 ) mGycm TECHNIQUE: Transaxial images were obtained from the dome of the diaphragm to the symphysis pubis without oral contrast. IV 100mL Isovue-300 was administered. Sagittal and coronal images were reconstructed. Individualized dose optimization techniques were used for this CT. COMPARISON: None. FINDINGS: Mild with increasing markings at the lung bases suggestive of atelectasis and/or scarring. The visualized portions of the heart are within normal limits. There is hepatomegaly with diffuse hepatic enlargement. The gallbladder is unremarkable. Mild degree of central intrahepatic ductal dilatation. The common bile duct is slightly distended measuring 9.2 mm distally. Normal spleen. Normal pancreas. Mild enlargement of the left adrenal gland suggestive of possible adenoma. Normal right kidney. Normal left kidney. Normal visualized stomach. Normal small intestine. There are multiple colonic diverticula consistent with diverticulosis. There is non-visualization of the appendix. There is scattered atherosclerotic calcification of the abdominal aorta, without a demonstrated aneurysm. Normal inferior vena cava. Normal retroperitoneum. Normal urinary bladder. Thinning of the anterior abdominal wall musculature although no jose raul herniation is seen. The patient is status post interpedicular screw and anju fixation at the L3-L4 L4-L5 and L5-S1 levels. This causes beam hardening artifact. Limited evaluation of the retroperitoneal structures. The patient is also status post left hip replacement. CT/Abdomen/Pelvis W IV Cont ONLY IMPRESSION: Mildly dilated central intrahepatic biliary ducts and common bile duct. The gallbladder is unremarkable. Hepatomegaly. Electronically Signed: Rc Ley MD at 13:58 EDT ,
[2024-04-26] MEDS: 0.9% Normal Saline (1000mL) 1,000 ML 999 ML IV (12:47)
[2024-04-26 12:49] LABS: Absolute Lymphocyte Count 1.95 X10^3/uL (0.83-4.51); Absolute Neutrophil Count 2.6 X10^3/uL (2.0-7.7); Basophil# 0.06 X10^3/uL; Basophil% 1.1 % (0-1); Eosinophil# 0.32 X10^3/uL; Eosinophils% 5.9 % (0-5); Hematocrit 38.7 % (37-47); Hemoglobin 11.6 g/dL (12.0-15.0); Lymphocyte # 1.95 X10^3/ul (0.83-4.51); Lymphocyte % 35.8 % (19-41); Mean Corpuscular Hgb 23.3 pg (27.0-32.0); Mean Corpuscular Volume 77.7 fL (81-99); Mean Platelet Vol. 9.2 fl (6.2-12.0); Monocyte# 0.45 X10^3/uL; Monocyte% 8.3 % (0-10); NRBC Flagged by Analyzer 0 % (0-5); Neutrophil # 2.64 X10^3/uL (2.7-7.7); Neutrophil % 48.5 % (47-70); POSITIVE MORPHOLOGY YES; Platelet Count 276 K/mm3 (150-450); RBC Distribution Width CV 23.2 % (11.6-14.6); RBC Distribution Width SD 63.4 fl (35.1-43.9); Red Blood Count 4.98 M/mm3 (4.2-5.4); White Blood Count 5.4 K/mm3 (4.4-11.0)
[2024-04-26 12:50] LABS: Differential Indicated SCAN CRITERIA MET
[2024-04-26 13:11] LABS: Anisocytosis 1+
[2024-04-26 13:32] LABS: Anion Gap 9 (5-15); BUN 7 mg/dL (7-18); BUN/Creat Ratio 10.3 RATIO (10-20); Calcium,Total 8.6 mg/dL (8.5-10.1); Chloride 104 mmol/L (98-107); Creatinine, Serum 0.68 mg/dL (0.55-1.02); EST Glomerular Filtration Rate 93 mL/min (>60); Est Glom Filt Rate - Afr Amer 113 mL/min (>60); Estimated Creatinine Clearance 85.61 ml/min; Glucose 106 mg/dL (74-106); Potassium 4.4 mmol/L (3.5-5.1); Sodium Level 139 mmol/L (136-145)
[2024-04-26 14:15] VITALS: BP 124/78; PULSE 64; RESP 16; O2SAT 98
--- NOTE | 2024-04-26 14:48 | ED.RN ---
pt left without d/c not sure if she pulled iv or not. tried to call to see if she had pulled her own iv or not. called cell phone no answer.
--- NOTE | 2024-04-26 14:51 | ED.RN ---
husbands number no longer active when trying to call. officer anibal aware.
== END 2024-04-26 14:55 | disposition home or self-care (01) ==
PROVIDERS: Physician Assistant; Emergency Provider Emergency Medicine; Visit Provider Emergency Medicine
DX: A04.72 Enterocolitis due to Clostridium difficile, not specified as recurrent (principal); F17.210 Nicotine dependence, cigarettes, uncomplicated; F32.A Depression, unspecified
CPT/HCPCS: 74177; 80048; 85025; 99283; J7030; Q9967; A4216

== ENCOUNTER 2024-05-27 13:55 | Emergency (ER) | payer BC, SELFPAY ==
[2024-05-27 13:56] VITALS: BP 123/81; PULSE 99; RESP 16; TEMP 36.4; O2SAT 100; BMI 29.2
== END 2024-05-27 14:07 | disposition left against medical advice (07) ==
LOC: ED 14:10
DX: S89.80XA Other specified injuries of unspecified lower leg, initial encounter (principal)

== ENCOUNTER 2025-01-12 01:38 | Emergency (ER) | payer BC, SELFPAY ==
[2025-01-12 01:39] VITALS: PULSE 103; RESP 20; TEMP 37.1; O2SAT 83; O2SAT 94; BMI 28.9
[2025-01-12 01:44] VITALS: BP 122/79
--- NOTE | 2025-01-12 02:12 | ED.RN ---
RN attempted to start an IV and bloodwork. pt refused at that time
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
[2025-01-12 03:17] VITALS: O2SAT 92
--- NOTE | 2025-01-12 03:55 | RAD_ITS ---
PROCEDURE: CHEST PA AND LATERAL REASON FOR EXAM: Cough and dyspnea. TECHNIQUE: Frontal and lateral views of the chest. COMPARISON: None available. FINDINGS: Bibasilar airspace opacities. Mild blunting of the costophrenic sulci compatible with small effusions. Upper limit normal heart size. Aortic knob is calcified. No acute osseous or upper abdominal abnormality. Multilevel degenerative changes in the thoracic spine with wedging of several vertebral bodies. RAD/Chest PA and Lateral IMPRESSION: BIBASILAR ATELECTASIS OR PNEUMONIA WITH SMALL PLEURAL EFFUSIONS. FOLLOW-UP TO RESOLUTION RECOMMENDED. Reading Location: [id number]
[2025-01-12 04:25] VITALS: BP 91/62; PULSE 71; RESP 18; O2SAT 93
== END 2025-01-12 04:59 | disposition left against medical advice (07) ==
PROVIDERS: Emergency Provider Emergency Medicine; PCP Nurse Practitioner Family; Visit Provider Emergency Medicine
DX: J18.9 Pneumonia, unspecified organism (principal); R09.02 Hypoxemia; K43.9 Ventral hernia without obstruction or gangrene; F17.210 Nicotine dependence, cigarettes, uncomplicated; F32.A Depression, unspecified
CPT/HCPCS: 71046; 99284